=== PATIENT | male | born 2000 | race Caucasian/White ===

== ENCOUNTER 2022-09-15 14:58 | Emergency (ER) | payer OTHER ==
[2022-09-15] MEDS ORDERED: Ketorolac 30 MG/ML SDV IM STA (16:09)
== END 2022-09-15 17:14 | disposition home or self-care (01) ==
LOC: MW.ED 14:58
DX: S39.012A Strain of muscle, fascia and tendon of lower back, initial encounter (principal); V89.2XXA Person injured in unspecified motor-vehicle accident, traffic, initial encounter; Y92.410 Unspecified street and highway as the place of occurrence of the external cause
CPT/HCPCS: 72072; 96372; 99284; J1885; 99283

== ENCOUNTER 2023-06-14 11:08 | Emergency (ER) | payer BC, OTHER ==
[2023-06-14] MEDS ORDERED: ceFAZolin 1 GM Vial IM ONE (11:40)
[2023-06-14] MEDS ORDERED: Lidocaine 1% 5 ML VIAL INJECT ONE (11:41)
[2023-06-14] MEDS ORDERED: Acetaminophen/oxyCODONE 325-5 MG Tab PO ONE (11:48)
[2023-06-14] MEDS ORDERED: Diphtheria,Pertussis(Acell),Tetanus Vaccine 0.5 ML Syringe IM ONE (11:49)
== END 2023-06-14 13:41 | disposition home or self-care (01) ==
LOC: MW.ED 11:08
DX: S68.111A Complete traumatic metacarpophalangeal amputation of left index finger, initial encounter (principal); X58.XXXA Exposure to other specified factors, initial encounter
CPT/HCPCS: 64450; 73140; 90471; 90715; 96372; 99283; A9270; J0690; J3490